=== PATIENT | male | born 1965 | race Caucasian/White ===

== ENCOUNTER 2016-12-10 16:22 | Outpatient (CLI) | payer BC, OTHER ==
[2016-12-10 16:44] VITALS: RESP 16; TEMP 98.3
[2016-12-10] MEDS ORDERED: Sodium Chloride 0.9% 1,000 ML ONE (17:09)
== END 2016-12-10 18:12 | disposition home or self-care (01) ==
LOC: IV THERAPY 16:22
PROVIDERS: ATTEND Emergency Medicine
DX: E86.0 Dehydration (principal)
CPT/HCPCS: 96360; 96361; 99211; J7030

== ENCOUNTER 2017-02-01 10:49 | Emergency (ER) | payer BC, OTHER ==
[2017-02-01] MEDS ORDERED: Sodium Chloride 0.9% 1,000 ML PRIMARY IV ONE ×2 (11:36→14:10)
[2017-02-01] MEDS ORDERED: NORMAL SALINE 10 ML SYRINGE FLUSH IVP PRN (11:36)
[2017-02-01 12:08] LABS: VENOUS PH 7.26 (7.32-7.42)
[2017-02-01 12:16] LABS: BASOPHILS # (AUTO) 0.01 10*3/UL; BASOPHILS % (AUTO) 0.2 % (0-1); EOSINOPHILS # (AUTO) 0 10*3/UL; EOSINOPHILS % (AUTO) 0 % (0-8); HEMATOCRIT 50.4 % (42.0-52.0); HEMOGLOBIN 16.6 g/dL (14.0-18.0); LYMPHOCYTES # (AUTO) 0.43 10*3/uL; MEAN CORPUSCULAR HEMOGLOBIN 27.2 PG (27-31); MEAN CORPUSCULAR HGB CONC 32.9 g/dL (33-37); MEAN CORPUSCULAR VOLUME 82.6 FL (80-90); MONOCYTES # (AUTO) 0.49 10*3/UL (0.3-0.8); MONOCYTES % (AUTO) 8.7 % (5-15); NEUTROPHILS # (AUTO) 4.71 10*3/UL; NEUTROPHILS % (AUTO) 83.3 % (50-80)
[2017-02-01 12:23] LABS: PLATELET MORPHOLOGY COMMENT SEE COMMENTS (NORM); RBC MORPHOLOGY COMMENT NORMAL MORPHOLOGY (NORM); WBC MORPHOLOGY COMMENT NORMAL MORPHOLOGY (NORM)
[2017-02-01 12:25] LABS: BUN/CREATININE RATIO 12.96 (6-20); MAGNESIUM 2.3 mg/dL (1.6-2.4); SERUM ALBUMIN 4.2 g/dL (3.5-4.8)
[2017-02-01 12:36] LABS: CALCIUM 9.9 mg/dL (8.7-10.7)
[2017-02-01 12:43] LABS: C-REACTIVE PROTEIN 16.6 mg/dL (0.0-0.9)
[2017-02-01] MEDS ORDERED: Ertapenem Inj 1 GM in Sodium Chloride 0.9% 100 ML IV ONE (12:51)
--- NOTE | 2017-02-01 12:59 | DI ---
CT HEAD SCAN WITHOUT IV CONTRAST, 02/01/2017 11:36 AM : Clinical History: Confusion. Renal cell carcinoma. Previous Exam: 04/05/2016. Scans are obtained from the foramen magnum to the vertex without IV contrast. The 4th, 3rd, and lateral ventricles are of normal size, shape, position, and contour for the patient 's age. There is no evidence of an acute hemorrhagic or bland infarct. There is no evidence of ischem ic change. No mass effect or white matter edema is present to indicate metastatic disease. There is m oderately severe cerebellar and cerebral atrophy and the severity of cerebral atrophy has progressed since the previous study. There are no extracerebral mantles or shift of the midline structures. Bone window evaluation is normal. The paranasal sinuses are normal. READIN. There is no evidence of an acute hemorrhagic or bland infarct or small vessel ischemic disease. 2. No intracerebral or bony metastases are identified. 3. Moderately severe cerebellar and cerebral atrophy. Cerebral atrophy has progressed slightly since the previous exam.
[2017-02-01 13:07] LABS: BILIRUBIN,URINE LARGE (NEG); COLOR,URINE YELLOW; GLUCOSE, URINE (UA) NEGATIVE (NEG); NITRATE,URINE NEGATIVE (NEG); OCCULT BLOOD,URINE Trace-intact (NEG); PROTEIN,URINE 100 mg/dl (NEG)
[2017-02-01 13:11] LABS: CLARITY,URINE SLIGHTLY CLOUDY (CLEAR); URINE SAMPLE TYPE CATH SPECIMEN
[2017-02-01 13:12] LABS: SQUAMOUS EPITHELIAL CELL,UR MANY; URINE CASTS MANY; URINE CRYSTALS MANY; URINE SPECIFIC GRAVITY - MAN 1.028
[2017-02-01] MEDS ORDERED: SODIUM POLYSTYRENE SULFONATE 15 GM/60 ML PO ONE (13:32)
[2017-02-01] MEDS ORDERED: DEXTROSE 50%-WATER SYRINGE 50 ML SYRINGE IVP ONE (13:33)
[2017-02-01] MEDS ORDERED: INSULIN REGULAR, HUMAN 100 UNIT/1 ML - 3 ML IV ONE (13:34)
[2017-02-01] MEDS ORDERED: D5W IV ONE ×2 (13:37)
[2017-02-01] MEDS ORDERED: SODIUM BICARB IV ONE ×4 (13:37→13:50)
[2017-02-01] MEDS ORDERED: SODIUM CHLORIDE 0.9% IV ONE ×2 (13:50)
--- NOTE | 2017-02-01 13:52 | DI ---
PA /LATERAL CHEST X-RAY, 02/01/2017 11:36 AM : Clinical History: Hypoxia. Renal cell carcinoma. Previous Exam: 11/14/2013. There is no acute soft tissue or bony abnormality. Buttress plates have been placed along the lateral aspect of the right third through fifth and seventh ribs. Heart size is normal. There is blunting of the left costophrenic angle with elevation of the left diaphragm. There is a stellate density in the right upper lobe. This can represent postsurgical scarring if the patient has had prior surgery in t his area. If there is no history of lung resection, then this may represent a tumor nidus. There is s ome right lower lobe atelectasis. Mediastinal structures are normal. Readin. There is a roughly 25 mm stellate lesion in the right apex that either represents postsurgical sc arring or it may represent a mass. 2. Right lower lobe atelectasis. There is chronic blunting of the left costophrenic angle.
[2017-02-01] MEDS ORDERED: SODIUM BICARBONATE 8.4% - 50 ML ADULT SYRINGE IVP ONE (13:56)
--- NOTE | 2017-02-01 14:00 | PDOC ---
General Adult HPI - General Chief Complaint: General Medical Stated Complaint: FALL, WEAKNESS Date Seen by Provider: 02/01/17 Time Seen by Provider: 11:10 Source: POSITIVE: Patient, Other () Exam Limitations: POSITIVE: No limitations Nurse's Notes Reviewed & Considered: Yes EMS Report Reviewed & Considered: Verbal - History of Present Illness Initial Comment: The patient is a 51-year-old male who is brought to the emergency room by ambulance. Patient and report that for the past several days he has become progressively weak. He has fallen 3 times in the past week, according to his . He most recently fell at his residence this morning and this is when the called the ambulance. reports that the patient was confused following his fall. On arrival of the paramedics he was noted to have cyanotic nailbeds and his oxygen saturation on 2 L of oxygen per minute, which he patient is on continuously, was 78%. He was placed on nonrebreather mask and his saturations came up to 96% and his mental status cleared. 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 His oncologist in [place] is Dr. Dash and his radiation oncologist is Dr. Santiago. Patient is presently taking chemotherapy orally with Afinitor and Lenvima. He was taking radiation treatments which he states was terminated a few months ago. Patient also has a recurring anal fissure and he was scheduled to see Dr. Figueroa, surgeon, for this problem later on today. He furthermore had a tooth extracted, right lower wisdom tooth, and the patient has had pain to the mandible on the right since. Review of old records shows that he may possibly have an osteonecrosis of the jaw. Patient was started on penicillin orally by his dentist or oral surgeon for a possible infection in the jaw. He continues to have pain in the right mandible. Patient states that his appetite is been poor and states he is not been eating or drinking normally. He's had diarrhea for the past several days. He denies any head, chest or abdominal pain. He does complain of pain to the right mandible and to the para anal area where he has an anal fissure. Have you received a tetanus shot in the past 10 years?: No Body Location Affected: REPORTS: Other (Generalized weakness, left mandible pain and para anal pain as above) Timing: REPORTS: Gradual, Getting Worse Duration: <1 week (For 3-4 days) Severity: Moderate Quality: REPORTS: "Pain" (Right mandible and perianal area.) Context: REPORTS: Fall (Frequent episodes of falls due to weakness) Modifying Factors: improves with: Vomiting (Times one) Similar Symptoms Previously: No Recent Care Received: REPORTS: Recently Seen, Treated by MD (Seen by for head, oncologist, 01/27/2017) - Patient Home Medications Home Medications: Home Medications Multivitamin [Multivitamins] 1 each PO DAILY 12/20/12 Acyclovir [Zovirax] 1 applic TP 5XD #1 tube 10/09/14 Indomethacin 50 mg PO TID #30 cap 10/06/15 Hydrochlorothiazide 1 tab PO DAILY tab 03/30/16 Pantoprazole Sodium 1 tab PO DAILY tab 03/30/16 Oxycodone HCl/Acetaminophen [Percocet 5-325 Mg Tablet] 1 - 2 tab PO Q4-6H #90 tab 05/28/16 Valacyclovir HCl [Valtrex] 1 tab PO TID #21 tab 08/27/16 Allopurinol 100 mg PO QD #90 tab 09/10/16 Gabapentin 1 cap PO TID #90 cap 11/30/16 Everolimus [Afinitor] 5 mg PO DAILY 12/10/16 Lemvina 14 mg PO DAILY 12/10/16 Penicillin V Potassium [Pen-Vee K] 500 mg PO TID 12/10/16 - Patient Allergies Allergies/Adverse Reactions: Allergies Allergy/AdvReac Type Severity Reaction Status Date / Time MELON Allergy ITCHING Uncoded 02/01/17 11:57 Past Medical History - heen HEENT History: Tinnitis Cardiovascular History: Hypertension, Hyperlipidemia Respiratory History: Home Oxygen Use, Other (please comment) Additional Respiratory History: O2@ 2l/min per [place] Gastrointestinal History: GERD Genitourinary History: Other (please comment) Additional Genitourinary History: kidney removed (2013). renal cell carcinoma with mets to lung/lymph nodes Endocrine History: Type 2 Diabetes (diet) Musculoskeletal History: Gout Prosthesis or Implant: Yes (4 PLATES R RIBS, R SHOULDER) Additional Musculoskeletal History: GOUT IN BIG TOE LEFT/NEUROPATHY BILAT FEET Neurological History: Denies History Blood Disorders: Denies History Psychiatric History: Denies History History of Sexually Transmitted Diseases: No Cancer History: Other (please comment) In Past Year Been Physically Harmed or Verbally Threatened: No History of MDRO: No History of Other Communicable Diseases: Yes (HERPES ) Tobacco Use: Never Smoker Alcohol Use: None Substance Use Type: None Previous Surgical History: Yes Type / Date of Surgery: TONSILLECTOMY/ Rt HAND SX (1990)/ EGD/ R SHOULDER RCR/ NEPHRECTOMY/ADRENAL GLAND REMOVED (2013)/ 4 R RIBS REPLACED WITH TITANIUM (2013) , Rectal (03/31/2016) Anesthesia Reactions: No Malignant Hyperthermia: No Significant Family History: No pertinent family hx Past Medical History Reviewed: Reviewed - No Changes ROS - Limitations ROS Limitations: No Limitations Constitution: REPORTS: Weakness Cardiovascular: REPORTS: Denies Cardiac Symptoms Respiratory: REPORTS: Shortness Of Breath Neurological: REPORTS: Denies Neuro Symptoms Gastrointestinal: REPORTS: Vomitting, Diarrhea Endocrine: REPORTS: Denies Symptoms Musculoskeletal: REPORTS: Denies MS Symptoms Genitourinary: REPORTS: Denies Symptoms Eyes: REPORTS: Denies Symptoms ENT: REPORTS: Denies Symptoms Skin: REPORTS: Other (Anal fissure) Lympathic: REPORTS: Denies Lympathic Symptoms Immunologic: POSITIVE: Denies Symptoms Psychiatric: POSITIVE: Denies Psych Symptoms General Adult Exam - General Appearance General Appearance: POSITIVE: Alert, Cooperative, No Acute Distress, No Evidence of Trauma, Other (Weak, appears chronically ill; nailbeds cyanotic) - HEENT HEENT: POSITIVE: Head Inspection Nml, Eyes Inspection Nml, Ears Inspection Nml, Nose Inspection Nml, Pharynx Inspect. Nml, PERRL, EOMI. NEGATIVE: Oral/Dental Inspect. Nml (Pain on palpation right lower molars and mandible) - Pupils Pupil Size: 4 mm: Bilateral - Neck Neck: POSITIVE: Normal Inspection, Thyroid Normal - Respiratory Respiratory: NEGATIVE: Breath Sounds Normal (Breath sounds diminished on left) - Cardiovascular Cardiovascular: POSITIVE: Regular Rate & Rhythm, No Murmur, No Gallop, PMI Normal Peripheral Pulses: Radial (R): 2+, Radial (L): 2+ - Abdomen Abdomen: Soft: (All Quadrants), Normal Bowel Sounds: (All Quadrants), Denies Tenderness: (All Quadrants), No Splenomegaly: (All Quadrants), No Hepatomegaly: (All Quadrants), No Guarding: (All Quadrants), No Rebound: (All Quadrants), No Palpable Pulse: (All Quadrants), No Palpabale Mass: (All Quadrants), No Distention: (All Quadrants), No Rigidity: (All Quadrants) - Rectal Rectal: POSITIVE: Other (Large anal fissure at approximately the 6 o'clock position) - Back Back: POSITIVE: Normal Inspection - Skin Skin: POSITIVE: Other (Anal fissure at 6 o'clock position). 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 Chest x-ray shows fixation devices present in the right thorax. Radiologist reads scarring right upper lung and scarring or atelectasis left lower lung) Lab Results Reviewed: Yes Lab Results:: Laboratory Results 02/01/17 02/01/17 02/01/17 Range/Units 10:30 11:56 13:04 WBC 5.65 (4.8-10.8) 10^3/uL RBC 6.10 (4.70-6.10) 10^6/uL Hgb 16.6 (14.0-18.0) g/dL Hct 50.4 (42.0-52.0) % MCV 82.6 (80-90) FL MCH 27.2 (27-31) PG MCHC 32.9 L (33-37) g/dL RDW Std Deviation 61.2 H (39-50) fL RDW Coeff of Mukund 20.9 H (11.5-14.5) % Plt Count 125 L (140-350) 10*3/uL Immature Gran % (Auto) 0.2 (0-5) % Neut % (Auto) 83.3 H (50-80) % Lymph % (Auto) 7.6 L (10-50) % [place] % (Auto) 8.7 (5-15) % Eos % (Auto) 0 (0-8) % Baso % (Auto) 0.2 (0-1) % Immature Gran # (Auto) 0.01 10*3/UL Neut # (Auto) 4.71 10*3/UL Lymph # (Auto) 0.43 10*3/uL [place] # (Auto) 0.49 (0.3-0.8) 10*3/UL Eos # (Auto) 0 10*3/UL Baso # (Auto) 0.01 10*3/UL WBC Morphology Comment Normal morphology (NORM) Plt Morphology Comment See comments (NORM) RBC Morph Comment Normal morphology (NORM) VBG pH 7.26 L (7.32-7.42) VBG pCO2 43 L (45-55) mmHg VBG HCO3 19 L (22-26) mmol/L VBG Base Excess -8 L (-2-2) MMOL/L Sodium 135 (135-145) meq/L Potassium 5.4 H (3.8-5.2) meq/L Chloride 97 L (98-112) meq/L Carbon Dioxide 19 L (23-33) meq/L Anion Gap 19 (5-20) BUN 35 H (7-22) mg/dL Creatinine 2.7 H (0.70-1.50) mg/dL Estimated GFR 25 (>60 ml/min/1.73m(2)) BUN/Creatinine Ratio 12.96 (6-20) Glucose 123 H (78-110) mg/dL Calculated Osmolality 288.0 (267-292) mOsm/kg Lactic Acid 3.2 H (0.70-2.10) MMOL/L Calcium 9.9 (8.7-10.7) mg/dL Magnesium 2.3 (1.6-2.4) mg/dL Total Bilirubin 0.9 (0.3-1.2) mg/dL AST 50 (21-57) IU/L ALT 27 (21-72) IU/L Alkaline Phosphatase 138 H (38-126) IU/L C-Reactive Protein 16.6 H (0.0-0.9) mg/dL Total Protein 8.5 H (6.1-8.0) g/dL Albumin 4.2 (3.5-4.8) g/dL Globulin 4.3 H (2.50-4.10) g/dL Albumin/Globulin Ratio 0.90 L (1.3-2.0) mg/g Ur Collection Type Cath specimen Urine Color Yellow Urine Clarity Slightly cloudy (CLEAR) Urine pH 5.0 (5.0-8.5) Ur Specific [place] >=1.030 (1.005-1.030) U Specif Grav (Refrac) 1.028 Urine Protein 100 (NEG) mg/dl Urine Glucose (UA) Negative (NEG) mg/dL Urine Ketones 15 (NEG) Urine Occult Blood Trace-intact H (NEG) Urine Nitrate Negative (NEG) Urine Bilirubin Large (NEG) Urine Urobilinogen 1.0 (0.2) EU/dL Ur Leukocyte Esterase Negative (NEG) Urine RBC 2-5 (NONE) /hpf Urine WBC None (NONE) Ur Squamous Epith Cells Many (NONE) Ur Renal Epithelial Cell None (NONE) Urine Crystals Many Urine Bacteria None (NONE) Urine Casts Many (NONE) Urine Mucus None (NONE) Urine Trichomonas None (NONE) Urine Yeast None (NONE) Ur Culture Indicated? Culture not set - Patient's Progress Pain Medication Addressed: POSITIVE: Not Applicable School/Work Release Addressed: POSITIVE: Not Applicable Re-Examine Time: 12:35 Re-Examine Comment: Concern for possible sepsis, especially due to metabolic acidosis on venous blood gas with a pH of 7.26 and a bicarbonate of 17.3. Lactic acid also elevated. Blood cultures drawn and gram of Ancef ordered. Re-Examine Time:: 13:35 Re-Examine Comment: Case discussed with hospitalist, Dr. Alicea. Dr. Alicea recommends transfer of patient to [facility] [place] contacted and case discussed with Dr. Frederick, braiding machine operator and Dr. Gomez, hospitalist, who accepted the patient in transfer. Patient's hyperkalemia treated with a gram of bicarbonate IV, 30 mL of Kayexalate orally and an amp of D50 followed by 10 units of regular insulin IV. Status: POSITIVE: Improved, Re-Examined Antibiotics Given: Yes (Invanz, 1 g IV) - Consult Consult (If Yes, Name of Consulting MD & Time Called): Yes (Drs. Alicea, Otoinel, and Jason as above) Counseled: POSITIVE: Patient, Family, RE: Lab Results, RE: Radiology Results, RE : DX, RE: Need for F/U Patient Care Time - Estimated PCT Patient Care Time (In Minutes): 70 Vital Signs - Recent Vital Signs Vital Signs: Vital Signs (Last 8 hours) Temp Pulse Resp BP Pulse Ox 02/01/17 11:32 95.9 F L 74 22 103/78 99 - VS Reviewed Vital Signs Reviewed: Yes Critical Care Note - Critical Care Note Total Time (mins): 70 Critical Care: Life Threatening Scenario, Renal Failure Risk, Interpretation of Labs - Management Adjusted Based on Results, Interpretation Imaging Studies - Management Adjusted Based on Results History Source: Patient, Family, EMS notes reviewed, Old records Discussion with Family: Discussion with Research Methodologist: Dr. Alicea, hospitalist at [place]. Dr. Frederick braiding machine operator at [facility]. Dr. Gomez, hospitalist at [facility]. Discharge Clinical Impression: Renal failure, Sepsis, Hyperkalemia, Renal cell carcinoma, Anal fissure, Infection of tooth Discharge Disposition: Transferred to Short Term Facility Condition: Fair Date Decision to Transfer to Another Facility: 02/01/17 Time Decision to Transfer to Another Facility: 13:30
[2017-02-01 14:51] VITALS: RESP 16; TEMP 96.5
[2017-02-01] MEDS ORDERED: Sodium Chloride 0.9% 1,000 ML ONE (18:18)
== END 2017-02-01 14:44 | disposition short-term general hospital (02) ==
LOC: ER 10:49
DX: N17.9 Acute kidney failure, unspecified (principal); A41.9 Sepsis, unspecified organism; E87.5 Hyperkalemia; K60.2 Anal fissure, unspecified; K04.7 Periapical abscess without sinus; R19.7 Diarrhea, unspecified; C64.1 Malignant neoplasm of right kidney, except renal pelvis; R41.0 Disorientation, unspecified
CPT/HCPCS: 36415 ×2; 70450; 71020; 80053; 81001; 81003; 82803; 83605; 83735; 85025; 86140; 96361; 96365; 96375; 99284 ×2; J1815; J1335; J7030; J7050

== ENCOUNTER 2017-02-14 02:03 | Emergency (ER) | payer BC, OTHER ==
[2017-02-14 02:15] VITALS: RESP 20
[2017-02-14] MEDS ORDERED: LORazepam 2 MG/1 ML VIAL ONE (02:22)
[2017-02-14] MEDS ORDERED: ONDANSETRON 4 MG/2 ML VIAL IVP ONE (02:30)
[2017-02-14] MEDS ORDERED: MORPHINE SULFATE 4 MG/1 ML IVP ONE (02:30)
[2017-02-14] MEDS ORDERED: LORazepam 2 MG/1 ML VIAL IVP ONE ×2 (02:30→05:56)
[2017-02-14] MEDS ORDERED: Sodium Chloride 0.9% 1,000 ML PRIMARY IV ONE (02:30)
[2017-02-14 02:37] LABS: BASOPHILS # (AUTO) 0.01 10*3/UL; BASOPHILS % (AUTO) 0.2 % (0-1); EOSINOPHILS # (AUTO) 0.03 10*3/UL; EOSINOPHILS % (AUTO) 0.7 % (0-8); HEMOGLOBIN 9.5 g/dL (14.0-18.0)
--- NOTE | 2017-02-14 02:37 | PDOC ---
Dyspnea HPI - General Chief Complaint: Respiratory Complaint Stated Complaint: SOB Date Seen by Provider: 02/14/17 Time Seen by Provider: 02:32 Source: POSITIVE: Patient, Spouse, Old records Exam Limitations: POSITIVE: No limitations Treatment Prior to Arrival: REPORTS: Oxygen Nurse's Notes Reviewed & Considered: Yes - History of Present Illness Initial Comments: Patient comes in today with a chief complaint of increasing shortness of breath with chest pain. Patient with a complex medical history which includes renal cell carcinoma with metastasis, radiation treatment, chemotherapy, and recent hospitalization. Presently running low-grade fevers and receiving antibiotics. He now has right sided chest pain with shortness of breath. He feels as though his breath is being cut off and he is unable to catch his breath. During his hospitalization last week a thoracentesis was done and pulled approximately 2 L of fluid off his chest. States that his chest pain and shortness of breath has continued unchanged and is now getting worse. He denies any headache, nausea vomiting or diarrhea, no myalgias. Body Location Affected: REPORTS: Chest Timing: REPORTS: Constant, Changing Over Time, Getting Worse Duration: >1 week Severity: Severe Quality: REPORTS: Fullness, "Pain", Sharpness, Stabbing, Throbbing, Pressure Exacerbated By: REPORTS: Exertion Associated Symptoms: REPORTS: Fever, Chest Discomfort, Right Chest, Painful Breathing, Ankle Swelling Similar Symptoms Previously: Yes Recently seen/treated/hospitalized: Yes Any Prior Injuries Related to Current Complaint?: No - Patient Home Medications Home Medications: Home Medications Acyclovir [Zovirax] 1 applic TP 5XD #1 tube 10/09/14 Pantoprazole Sodium 1 tab PO DAILY tab 03/30/16 Everolimus [Afinitor] 5 mg PO DAILY 12/10/16 Penicillin V Potassium [Pen-Vee K] 500 mg PO TID 12/10/16 Chlorhexidine [Chlorhexidine Flavor] 1 ml PO TID 02/01/17 Diphenoxylate HCl/Atrop Sulf [Lomotil Tablet] 1 tab PO QID PRN 02/01/17 Gabapentin 900 mg PO TID 02/01/17 HYDROmorphone Tab [Dilaudid Tab] 1 - 2 tab PO Q4H PRN PRN 02/01/17 Lenvatinib Mesylate [Lenvima] 14 mg PO DAILY 02/01/17 - Patient Allergies Allergies/Adverse Reactions: Allergies Allergy/AdvReac Type Severity Reaction Status Date / Time MELON Allergy Unknown ITCHING Uncoded 02/13/17 14:02 Past Medical History - heen HEENT History: Tinnitis Cardiovascular History: Hypertension, Hyperlipidemia Respiratory History: Home Oxygen Use, Other (please comment) Additional Respiratory History: O2@ 2l/min per [place] Gastrointestinal History: GERD Genitourinary History: Other (please comment) Additional Genitourinary History: kidney removed (2013). renal cell carcinoma with mets to lung/lymph nodes Endocrine History: Type 2 Diabetes (diet) Musculoskeletal History: Gout Prosthesis or Implant: Yes (4 PLATES R RIBS, R SHOULDER) Additional Musculoskeletal History: GOUT IN BIG TOE LEFT/NEUROPATHY BILAT FEET Neurological History: Denies History Blood Disorders: Denies History Psychiatric History: Denies History History of Sexually Transmitted Diseases: No Male Reproductive History: Denies History Cancer History: Other (please comment) In Past Year Been Physically Harmed or Verbally Threatened: No History of MDRO: Yes History of Other Communicable Diseases: Yes (HERPES ) Tobacco Use: Never Smoker Alcohol Use: None Substance Use Type: None Previous Surgical History: Yes Type / Date of Surgery: TONSILLECTOMY/ Rt HAND SX (1990)/ EGD/ R SHOULDER RCR/ NEPHRECTOMY/ADRENAL GLAND REMOVED (2013)/ 4 R RIBS REPLACED WITH TITANIUM (2013) , Rectal (03/31/2016) Anesthesia Reactions: No Malignant Hyperthermia: No Significant Family History: No pertinent family hx ROS - Limitations ROS Limitations: No Limitations Constitution: REPORTS: Fever, Weakness Cardiovascular: REPORTS: Chest Pain Respiratory: REPORTS: Hurts To Breathe, Shortness Of Breath Neurological: REPORTS: Denies Neuro Symptoms Gastrointestinal: REPORTS: Denies GI Symptoms Endocrine: REPORTS: Fatigue Musculoskeletal: REPORTS: Denies MS Symptoms Genitourinary: REPORTS: Denies Symptoms Eyes: REPORTS: Denies Symptoms ENT: REPORTS: Denies Symptoms Skin: REPORTS: Denies Skin Symptoms Lympathic: REPORTS: Denies Lympathic Symptoms Immunologic: POSITIVE: Denies Symptoms Psychiatric: POSITIVE: Denies Psych Symptoms Dyspnea Physical Exam - General Appearance General Appearance: REPORTS: Alert, Cooperative, No Evidence of Trauma, Moderate Distress - HEENT HEENT: POSITIVE: Head Inspection Nml, Eyes Inspection Nml, Ears Inspection Nml, Nose Inspection Nml, PERRL, EOMI - Neck Neck: REPORTS: Normal Inspection - Respiratory Respiratory: REPORTS: Respiratory Distress, Decreased Air Movement (Decreased breath sounds on the left) - Cardiovascular Cardiovascular: REPORTS: Regular Rate and Rhythm, Heart Sounds Normal, No Murmur , No Gallop, No Friction Rub, No JVD - Abdomen Abdomen: Soft: (All Quadrants), Normal Bowel Sounds: (All Quadrants), Denies Tenderness: (All Quadrants) - Skin Skin: REPORTS: Intact, Normal For Race, Warm, Dry, No Rash - Extremities Extremity: Non-Tender: (All Extremities), Normal ROM: (All Extremities), Pelvis Stable: (All Extremities), Edema / Swelling: (All Extremities) - Neurological / Psychological Neurological: POSITIVE: Affect Apporpriate, Oriented X3, Motor Normal, Sensation Normal, Weakness Dyspnea Progress - Results Reviewed by me Xrays/CTs/US Reviewed by me: Yes Discussed with Radiologist: Yes Lab Results Reviewed: Yes Lab Results:: Laboratory Results 02/14/17 02/14/17 Range/Units 02:30 03:07 WBC 4.04 L (4.8-10.8) 10^3/uL RBC 3.20 L (4.70-6.10) 10^6/uL Hgb 9.5 L (14.0-18.0) g/dL Hct 28.8 L (42.0-52.0) % MCV 90.0 (80-90) FL MCH 29.7 (27-31) PG MCHC 33.0 (33-37) g/dL RDW Std Deviation 68.8 H (39-50) fL RDW Coeff of Mukund 22.6 H (11.5-14.5) % Plt Count 163 (140-350) 10*3/uL MPV 9.6 (7.4-12.2) FL Immature Gran % (Auto) 0.7 (0-5) % Neut % (Auto) 80.4 H (50-80) % Lymph % (Auto) 6.9 L (10-50) % Bledsoe % (Auto) 11.1 (5-15) % Eos % (Auto) 0.7 (0-8) % Baso % (Auto) 0.2 (0-1) % Immature Gran # (Auto) 0.03 10*3/UL Neut # (Auto) 3.24 10*3/UL Lymph # (Auto) 0.28 10*3/uL Bledsoe # (Auto) 0.45 (0.3-0.8) 10*3/UL Eos # (Auto) 0.03 10*3/UL Baso # (Auto) 0.01 10*3/UL WBC Morphology Comment Normal morphology (NORM) Plt Morphology Comment Normal morphology (NORM) RBC Morph Comment See comments (NORM) VBG pH 7.33 (7.32-7.42) VBG pCO2 38 L (45-55) mmHg VBG HCO3 20 L (22-26) mmol/L VBG Base Excess -6 L (-2-2) MMOL/L Sodium 136 (135-145) meq/L Potassium 3.7 L (3.8-5.2) meq/L Chloride 105 (98-112) meq/L Carbon Dioxide 21 L (23-33) meq/L Anion Gap 10 (5-20) BUN 9 (7-22) mg/dL Creatinine 1.0 (0.70-1.50) mg/dL Estimated GFR > 60 (>60 ml/min/1.73m(2)) BUN/Creatinine Ratio 9.00 (6-20) Glucose 142 H (78-110) mg/dL Calculated Osmolality 282.0 (267-292) mOsm/kg Calcium 7.1 L (8.7-10.7) mg/dL Magnesium 1.5 L (1.6-2.4) mg/dL Total Bilirubin 0.4 (0.3-1.2) mg/dL AST 16 L (21-57) IU/L ALT 19 L (21-72) IU/L Alkaline Phosphatase 61 (38-126) IU/L Troponin I < 0.012 (< 0.040) ng/mL NT-Pro-B Natriuret Pep 2560 H (0-125) PG/ML Total Protein 5.1 L (6.1-8.0) g/dL Albumin 2.5 L (3.5-4.8) g/dL Globulin 2.6 (2.50-4.10) g/dL Albumin/Globulin Ratio 0.90 L (1.3-2.0) mg/g TSH 71.6 H (0.2700-4.2000) uIU/mL Free T4 0.57 L (0.93-1.71) ng/dL EKG Interpretation:: POSITIVE: Normal Sinus Rhythm - Patient's Progress Pain Medication Addressed: POSITIVE: Yes Re-Examine Time: 05:06 Status: POSITIVE: Improved MDM / ED Course: Patient was examined, an IV started, blood drawn and sent to the lab for studies , radiographic and EKG studies were obtained. EKG showed a sinus rhythm per my interpretation. Chest x-ray shows a left lung cher out. Findings: CT scan shows large bilateral pleural effusion and demonstrates a large pericardial effusion. CBC shows anemia with hemoglobin of 9.5 WBCs are low at 4. TSH is very high at 75. Creatinine is normal at 1. BNP is greater than 2500. Assessment: #1 Hypothyroidism versus myxedema, #2 large pericardial effusion, # 3 large bilateral pleural effusions, #4 low albumin, #5 fluid overload possibly related to #1 versus low oncotic pressure from #4. Plan: Transfer to [facility] for higher level of care. 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 ER course: Patient received morphine and Ativan which resulted in significant improvement of his respiratory distress. 40 mg of Lasix was provided IV. Oxygenation improved, initially patient was on 6 L nasal cannula and this was decreased to 2 L maintaining oxygen saturation in the mid 90s. EMS has been contacted and is transporting the patient with CPAP. Air Movement: POSITIVE: Poor Quality Measure Initiative: CP/AMI: POSITIVE: EKG Quality Measure Initiative: CAP: POSITIVE: SaO2, CXR or CT - Consult Consult (If Yes, Name of Consulting MD & Time Called): Yes (Dr. Veloz, [id number]) Consulting MD will see pt:: POSITIVE: Recommended Transfer Counseled: POSITIVE: Patient, Family, RE: Lab Results, RE: Radiology Results, RE : DX Patient Care Time - Estimated PCT Patient Care Time (In Minutes): 60 Vital Signs - Recent Vital Signs Vital Signs: Vital Signs (Last 8 hours) Temp Pulse Resp BP Pulse Ox 02/14/17 02:05 97.3 F 101 H 20 124/84 96 - VS Reviewed Vital Signs Reviewed: Yes Discharge Clinical Impression: Pericardial effusion, Bilateral pleural effusion, Hypothyroidism Discharge Disposition: Transferred to Tertiary Care Facility Condition: Stable Patient Instructions Given at Discharge: Pericardial Effusion (ED), Pleural Effusion (ED), Hypothyroidism (ED) Date Decision to Transfer to Another Facility: 02/14/17 Time Decision to Transfer to Another Facility: 04:50
[2017-02-14 02:41] LABS: HEMATOCRIT 28.8 % (42.0-52.0); LYMPHOCYTES # (AUTO) 0.28 10*3/uL; MEAN CORPUSCULAR HEMOGLOBIN 29.7 PG (27-31); MEAN PLATELET VOLUME 9.6 FL (7.4-12.2); MONOCYTES # (AUTO) 0.45 10*3/UL (0.3-0.8); MONOCYTES % (AUTO) 11.1 % (5-15); NEUTROPHILS # (AUTO) 3.24 10*3/UL; NEUTROPHILS % (AUTO) 80.4 % (50-80)
[2017-02-14 02:45] LABS: BLOOD UREA NITROGEN 9 mg/dL (7-22); CALCIUM 7.1 mg/dL (8.7-10.7); EST GLOMERULAR FILTRATION > 60 (>60 ml/min/1.73m(2)); MAGNESIUM 1.5 mg/dL (1.6-2.4); SERUM ALBUMIN 2.5 g/dL (3.5-4.8)
[2017-02-14 02:47] LABS: PLATELET MORPHOLOGY COMMENT NORMAL MORPHOLOGY (NORM); RBC MORPHOLOGY COMMENT SEE COMMENTS (NORM); WBC MORPHOLOGY COMMENT NORMAL MORPHOLOGY (NORM)
--- NOTE | 2017-02-14 03:03 | EKG ---
[address] [place] [address] Measurements Intervals [place] Rate: 104 P: 9 MT: 99 QRS: 31 QRSD: 88 T: 17 QT: 265 QTc: 326 Interpretive Statements SINUS TACHYCARDIA WITH SHORT MT INTERVAL LOW QRS VOLTAGE [QRS DEFLECTION < 0.5/1.0 mV IN LIMB/CHEST LEADS] POSSIBLE ANTERIOR MYOCARDIAL INFARCTION [30 ms Q WAVE IN V3/V4, OR R < 0.2 mV IN V4], PROBABLY OLD Compared to ECG 11/14/2013 09:01:00 Short MT interval now present Low QRS voltage now present Myocardial infarct finding now present Sinus rhythm no longer present Electronically Signed On 02-14-17 12:22:57 MDT by Hiram Perez MD [email or web address]
[2017-02-14 03:05] LABS: FREE T4 (FREE THYROXINE) 0.57 ng/dL (0.93-1.71)
[2017-02-14 03:21] LABS: VENOUS PH 7.33 (7.32-7.42)
[2017-02-14] MEDS ORDERED: FUROSEMIDE 10 MG/1 ML - 4 ML IVP ONE (05:08)
[2017-02-14 05:40] LABS: BILIRUBIN,URINE NEGATIVE (NEG); COLOR,URINE YELLOW; GLUCOSE, URINE (UA) NEGATIVE (NEG); NITRATE,URINE NEGATIVE (NEG); PH,URINE 5.5 (5.0-8.5); PROTEIN,URINE 30 mg/dl (NEG); UROBILINOGEN,URINE 0.2 EU/dL (0.2)
[2017-02-14 05:41] LABS: CLARITY,URINE CLOUDY (CLEAR); OCCULT BLOOD,URINE TRACE (NEG)
[2017-02-14 05:42] LABS: URINE SAMPLE TYPE CATH SPECIMEN
[2017-02-14 05:50] LABS: RENAL EPITHELIAL CELLS,URINE FEW
[2017-02-14 05:51] LABS: BACTERIA,URINE FEW; URINE CRYSTALS MANY
[2017-02-14 05:52] LABS: URINE CASTS MODERATE
--- NOTE | 2017-02-14 07:07 | DI ---
AP CHEST X-RAY, 02/14/2017 2:30 AM : Clinical History: Hypoxia. The patient has known renal cell carcinoma. Previous Exam: 02/01/2017. Metallic plates and then placed over the anterior aspects of the right third through fifth and sevent h ribs. Heart size is normal. There is a left pleural effusion with left lower lobe and lingular segm ent atelectasis. There is also atelectasis of the right lower lobe. The left mediastinum is obscured by the pleural effusion and atelectasis. The right mediastinum is grossly normal. Reading: Interval development of a large left pleural effusion and left lower lobe and lingular segment atelec tasis. There is atelectasis in the right lower lobe.
[2017-02-14 07:50] VITALS: TEMP 97.6
== END 2017-02-14 05:59 ==
LOC: ER 02:03
DX: J90 Pleural effusion, not elsewhere classified (principal); E03.9 Hypothyroidism, unspecified; R06.02 Shortness of breath; E11.9 Type 2 diabetes mellitus without complications
CPT/HCPCS: 36415; 71010; 71250; 80053; 81001; 81003; 82803; 83735; 83880; 84439; 84443; 84484; 85025; 93005; 93010; 96374; 96375; 96376; 99285; J1940; J2060; J2270; J2405; J7030

== ENCOUNTER 2017-02-20 13:25 | Emergency (ER) | payer BC, OTHER ==
[2017-02-20] MEDS ORDERED: Sodium Chloride 0.9% 1,000 ML PRIMARY IV ONE (13:51)
[2017-02-20] MEDS ORDERED: Pantoprazole Inj 40 MG in Normal Saline Flush 10 ML IVP ONE (13:52)
--- NOTE | 2017-02-20 13:53 | EKG ---
[address] [place] [address] Measurements Intervals [place] Rate: 99 P: -9 CA: 107 QRS: 65 QRSD: 84 T: 0 QT: 273 QTc: 329 Interpretive Statements SINUS RHYTHM WITH SHORT CA INTERVAL LOW QRS VOLTAGE Compared to ECG 02/14/2017 03:01:18 Sinus tachycardia no longer present Myocardial infarct finding no longer present Electronically Signed On 02-22-17 08:59:43 MDT by Mike Reynoso [email or web address]
[2017-02-20 13:56] VITALS: RESP 24; TEMP 97.1
[2017-02-20 14:01] LABS: BASOPHILS # (AUTO) 0.01 10*3/UL; BASOPHILS % (AUTO) 0.2 % (0-1); EOSINOPHILS # (AUTO) 0.03 10*3/UL; EOSINOPHILS % (AUTO) 0.7 % (0-8); HEMATOCRIT 31.7 % (42.0-52.0); HEMOGLOBIN 9.7 g/dL (14.0-18.0); LYMPHOCYTES # (AUTO) 0.17 10*3/uL; MEAN CORPUSCULAR HEMOGLOBIN 29.4 PG (27-31); MEAN CORPUSCULAR HGB CONC 30.6 g/dL (33-37); MEAN CORPUSCULAR VOLUME 96.1 FL (80-90); MEAN PLATELET VOLUME 9.7 FL (7.4-12.2); MONOCYTES # (AUTO) 0.76 10*3/UL (0.3-0.8); NEUTROPHILS % (AUTO) 78.1 % (50-80)
[2017-02-20 14:08] LABS: BLOOD UREA NITROGEN 9 mg/dL (7-22); BUN/CREATININE RATIO 11.25 (6-20); CALCIUM 8.1 mg/dL (8.7-10.7); EST GLOMERULAR FILTRATION > 60 (>60 ml/min/1.73m(2)); LIPASE 392 IU/L (23-300); MAGNESIUM 1.9 mg/dL (1.6-2.4); SERUM ALBUMIN 2.6 g/dL (3.5-4.8)
[2017-02-20] MEDS: NORMAL SALINE 10 ML SYRINGE FLUSH IVP PRN ×2 (14:18→15:14)
[2017-02-20 14:20] LABS: CREATINE KINASE MB 1.83 NG/ML (0.00-5.00)
[2017-02-20 14:22] LABS: TROPONIN I < 0.012 ng/mL (< 0.040)
[2017-02-20 14:26] LABS: PLATELET MORPHOLOGY COMMENT NORMAL MORPHOLOGY (NORM); WBC MORPHOLOGY COMMENT NORMAL MORPHOLOGY (NORM)
[2017-02-20 14:27] LABS: RBC MORPHOLOGY COMMENT SEE COMMENTS (NORM)
--- NOTE | 2017-02-20 15:47 | PDOC ---
General Adult HPI - General Chief Complaint: Chest Pain Stated Complaint: CHEST PAIN, SHORT OF BREATH Date Seen by Provider: 02/20/17 Time Seen by Provider: 13:30 Source: POSITIVE: Patient Exam Limitations: POSITIVE: No limitations Nurse's Notes Reviewed & Considered: Yes - History of Present Illness Initial Comment: The patient is a 51-year-old male who presents to the emergency department with left-sided chest and abdominal pain. He has a history of metastatic renal cell carcinoma. Recently he was hospitalized in [place] with a large pleural and pericardial effusion. He was found to be profoundly hypo-thyroid. 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 He presented here to the hospital for his IV Rocephin. He reported to nursing staff that he was having some left- sided chest pain and left upper abdominal pain. He subsequently was transferred here to the emergency room for evaluation. He states this pain is been ongoing since this morning. He states that he burped just before getting to the ER in his pain is improved significantly. He just got out of the hospital in [place] on Tuesday. He denies any fevers. He states that his shortness of breath actually has improved over the last 24 hours. He also previously had marked swelling in his hands and legs which also appears to be improving. He is on diuretics. He did have cardiac workup in [place] during his last hospitalization although he does not know the exact tests that were done. Have you received a tetanus shot in the past 10 years?: Yes - Patient Home Medications Home Medications: Home Medications Acyclovir [Zovirax] 1 applic TP 5XD #1 tube 10/09/14 Pantoprazole Sodium 1 tab PO DAILY tab 03/30/16 Everolimus [Afinitor] 5 mg PO DAILY 12/10/16 Penicillin V Potassium [Pen-Vee K] 500 mg PO TID 12/10/16 Chlorhexidine [Chlorhexidine Flavor] 1 ml PO TID 02/01/17 Diphenoxylate HCl/Atrop Sulf [Lomotil Tablet] 1 tab PO QID PRN 02/01/17 Gabapentin 900 mg PO TID 02/01/17 HYDROmorphone Tab [Dilaudid Tab] 1 - 2 tab PO Q4H PRN PRN 02/01/17 Lenvatinib Mesylate [Lenvima] 14 mg PO DAILY 02/01/17 Pantoprazole Sodium [Protonix] 40 mg PO BID #30 tablet. 02/20/17 - Patient Allergies Allergies/Adverse Reactions: Allergies Allergy/AdvReac Type Severity Reaction Status Date / Time MELON Allergy Unknown ITCHING Uncoded 02/20/17 13:39 Past Medical History - heen HEENT History: Tinnitis Cardiovascular History: Hypertension, Hyperlipidemia Respiratory History: Home Oxygen Use, Other (please comment) Additional Respiratory History: O2@ 3l/min per [place] Gastrointestinal History: GERD Genitourinary History: Other (please comment) Additional Genitourinary History: kidney removed (2013). renal cell carcinoma with mets to lung/lymph nodes Endocrine History: Type 2 Diabetes (diet), Hypothyroidism Musculoskeletal History: Gout Prosthesis or Implant: Yes (4 PLATES R RIBS, R SHOULDER) Additional Musculoskeletal History: GOUT IN BIG TOE LEFT/NEUROPATHY BILAT FEET Neurological History: Denies History Blood Disorders: Denies History Psychiatric History: Denies History History of Sexually Transmitted Diseases: No Male Reproductive History: Denies History Cancer History: Other (please comment) Cancer Treatment / Date(s) of Treatment: current In Past Year Been Physically Harmed or Verbally Threatened: No History of MDRO: Yes History of Other Communicable Diseases: Yes (HERPES ) Tobacco Use: Former Smoker Alcohol Use: None Substance Use Type: None Previous Surgical History: Yes Type / Date of Surgery: TONSILLECTOMY/ Rt HAND SX (1990)/ EGD/ R SHOULDER RCR/ NEPHRECTOMY/ADRENAL GLAND REMOVED (2013)/ 4 R RIBS REPLACED WITH TITANIUM (2013) , Rectal (03/31/2016) Anesthesia Reactions: No Malignant Hyperthermia: No Significant Family History: No pertinent family hx Past Medical History Reviewed: Reviewed - No Changes ROS - Limitations ROS Limitations: No Limitations Constitution: DENIES: Chills, Fever Cardiovascular: REPORTS: Chest Pain, Edema (Mostly in his legs at this point, improved significantly since last week). DENIES: Heart Racing, Heart Palpitations Respiratory: REPORTS: Shortness Of Breath (His shortness of breath actually has improved since yesterday). DENIES: Cough Non Productive, Cough Productive, Hurts To Breathe Neurological: REPORTS: Denies Neuro Symptoms Gastrointestinal: REPORTS: Abdominal Pain, Nausea. DENIES: Vomitting, Black Stools, Bloody Stools Genitourinary: REPORTS: Denies Symptoms Eyes: REPORTS: Denies Symptoms ENT: REPORTS: Denies Symptoms Skin: DENIES: Rash General Adult Exam - General Appearance General Appearance: POSITIVE: Alert, Cooperative, No Acute Distress - HEENT HEENT: POSITIVE: Eyes Inspection Nml, Ears Inspection Nml, Pharynx Inspect. Nml , Other (He does have multiple lesions on his scalp) - Neck Neck: POSITIVE: Normal Inspection - Respiratory Respiratory: POSITIVE: No Respiratory Distress, Other (Decreased breath sounds bilaterally) - Cardiovascular Cardiovascular: POSITIVE: Regular Rate & Rhythm, No Murmur Peripheral Pulses: Dorsalis-pedis (R): 2+, Dorsalis-pedis (L): 2+ - Abdomen Abdomen: Soft: (All Quadrants), Normal Bowel Sounds: (All Quadrants), No Distention: (All Quadrants) Additional Abdominal Details: Some tenderness in the left upper quadrant without guarding or rebound tenderness. - Skin Skin: POSITIVE: Normal Color, No Rash - Extremities Additional Extremities Details: He does have edema in the lower extremities bilaterally - Neurological / Psychological Neurological: POSITIVE: Other (No focal neurologic deficits) General Adult Progress - Results Reviewed by me Xrays/CTs/US Reviewed by me: Yes Discussed with Radiologist: Yes Radiology Findings: Portable chest x-ray reveals large left-sided pleural effusion. CT of his chest PE protocol reveals bilateral pleural effusions left greater than right as well as continued pericardial effusion. There is no evidence of PE. He does have tumor in the right upper lung and other chronic findings. CT scan of the abdomen and pelvis reveals ascites with no other significant acute abnormalities, chronic findings are noted. Lab Results Reviewed: Yes Lab Results:: Laboratory Results 02/20/17 Range/Units 13:40 WBC 4.48 L (4.8-10.8) 10^3/uL RBC 3.30 L (4.70-6.10) 10^6/uL Hgb 9.7 L (14.0-18.0) g/dL Hct 31.7 L (42.0-52.0) % MCV 96.1 H (80-90) FL MCH 29.4 (27-31) PG MCHC 30.6 L (33-37) g/dL RDW Std Deviation 76.6 H (39-50) fL RDW Coeff of Mukund 22.6 H (11.5-14.5) % Plt Count 300 (140-350) 10*3/uL MPV 9.7 (7.4-12.2) FL Immature Gran % (Auto) 0.2 (0-5) % Neut % (Auto) 78.1 (50-80) % Lymph % (Auto) 3.8 L (10-50) % Armstrong % (Auto) 17.0 H (5-15) % Eos % (Auto) 0.7 (0-8) % Baso % (Auto) 0.2 (0-1) % Immature Gran # (Auto) 0.01 10*3/UL Neut # (Auto) 3.50 10*3/UL Lymph # (Auto) 0.17 10*3/uL Armstrong # (Auto) 0.76 (0.3-0.8) 10*3/UL Eos # (Auto) 0.03 10*3/UL Baso # (Auto) 0.01 10*3/UL WBC Morphology Comment Normal morphology (NORM) Plt Morphology Comment Normal morphology (NORM) RBC Morph Comment See comments (NORM) PT 10.9 (9.7-11.4) secs INR 1.06 (0.00-5.90) N/A D-Dimer 5.03 H (0.00-0.59) mg/L Sodium 137 (135-145) meq/L Potassium 3.4 L (3.8-5.2) meq/L Chloride 100 (98-112) meq/L Carbon Dioxide 27 (23-33) meq/L Anion Gap 10 (5-20) BUN 9 (7-22) mg/dL Creatinine 0.8 (0.70-1.50) mg/dL Estimated GFR > 60 (>60 ml/min/1.73m(2)) BUN/Creatinine Ratio 11.25 (6-20) Glucose 148 H (78-110) mg/dL Calculated Osmolality 285.0 (267-292) mOsm/kg Calcium 8.1 L (8.7-10.7) mg/dL Magnesium 1.9 (1.6-2.4) mg/dL Total Bilirubin 0.5 (0.3-1.2) mg/dL AST 14 L (21-57) IU/L ALT 22 (21-72) IU/L Alkaline Phosphatase 50 (38-126) IU/L CK-MB (CK-2) 1.83 (0.00-5.00) NG/ML Troponin I < 0.012 (< 0.040) ng/mL Total Protein 5.4 L (6.1-8.0) g/dL Albumin 2.6 L (3.5-4.8) g/dL Globulin 2.8 (2.50-4.10) g/dL Albumin/Globulin Ratio 0.90 L (1.3-2.0) mg/g Amylase 85 (30-110) U/L Lipase 392 H (23-300) IU/L EKG Interpreted/Reviewed By Me:: Yes EKG Interpretation:: POSITIVE: Normal Sinus Rhythm, Normal Rate, Normal Intervals, Normal QRS, Normal ST/T - Patient's Progress MDM / ED Course: By the time the patient arrived in the emergency department his pain had significantly improved after belching. His initial EKG shows normal sinus rhythm with no obvious acute changes. The patient did receive Protonix. The patient's pain had resolved here in the emergency department. His lab work had revealed an elevated d-dimer as well as mildly elevated amylase. Subsequent CT scan of his chest reveals no evidence of PE, continued pleural effusions and pericardial effusions as well as chronic findings related to previous trauma and metastatic disease. CT scan of his abdomen and pelvis shows ascites with no other acute findings other than his metastatic disease. At this time I think the patient's pain was caused more from a GI source. He reports that he recently stopped taking Protonix. His pain is consistent with a gastritis or ulcer. He was started on Protonix 40 mg twice a day. He is advised return to the emergency room if he develops increased pain, vomiting or dehydration, fever , any worsening or change in symptoms. He has follow-up appointment scheduled with all of his various providers over the next couple of weeks. He will continue outpatient IV Rocephin as previously ordered - Consult Counseled: POSITIVE: Patient, Family, RE: Lab Results, RE: Radiology Results, RE : DX, RE: Need for F/U Patient Care Time - Estimated PCT Patient Care Time (In Minutes): 55 Vital Signs - VS Reviewed Vital Signs Reviewed: Yes Discharge Clinical Impression: Chest pain, Gastritis Discharge Disposition: Discharged to Home Condition: Stable Prescriptions / Orders: Pantoprazole Sodium [Protonix] 40 mg PO BID #30 tablet. Patient Instructions Given at Discharge: Chest Pain (ED), Gastritis (ED) Additional Instructions: The EKG of your heart did not reveal any evidence of heart attack. Your blood test also did not show any evidence of heart attack. The CAT scan of your chest did not reveal any evidence of blood clot. There was still fluid around both lungs, left greater than right and a small amount around the heart. Other chronic findings including tumor in the right upper lung and previous rib fractures etc. were also noted. The CAT scan of your abdomen and pelvis revealed no evidence of bowel obstruction or current infection. There was some fluid in the abdomen as well. At this time I think the pain you're experiencing is most likely secondary to gastritis or ulcer. This could be worsened from recent discontinuation of Protonix. Recommend reinitiation of Protonix 40 mg twice a day. Continue your other medications and treatments as previously prescribed. Return to the emergency room if increased pain, fever, vomiting or dehydration, any worsening or change in symptoms. Keep your various appointments with primary care in specialists over the next couple of weeks. Continue your outpatient antibiotics as previously prescribed. Follow Up With: NONE,NONE [Primary Care Provider] -
== END 2017-02-20 17:55 | disposition home or self-care (01) ==
LOC: ER 13:25
DX: K29.00 Acute gastritis without bleeding (principal); E11.9 Type 2 diabetes mellitus without complications; I10 Essential (primary) hypertension; E78.5 Hyperlipidemia, unspecified; R06.02 Shortness of breath; J90 Pleural effusion, not elsewhere classified
CPT/HCPCS: 71010; 71275; 74177; 80053; 82150; 82553; 83690; 83735; 84484; 85025; 85379; 85610; 93005; 93010; 96374; 99284; J3490; J7030

== ENCOUNTER 2017-02-25 14:14 | Emergency (ER) | payer BC, OTHER ==
[2017-02-25] MEDS ORDERED: Sodium Chloride 0.9% 1,000 ML PRIMARY IV ONE (14:22)
[2017-02-25] MEDS ORDERED: NORMAL SALINE 10 ML SYRINGE FLUSH IVP PRN (14:22)
[2017-02-25 14:48] VITALS: RESP 20; TEMP 100.2
--- NOTE | 2017-02-25 15:11 | PDOC ---
Dyspnea HPI - General Chief Complaint: Dyspnea Stated Complaint: INCREASED SHORTNESS OF BREATH Date Seen by Provider: 02/25/17 Time Seen by Provider: 14:30 Source: POSITIVE: Patient Exam Limitations: POSITIVE: No limitations Treatment Prior to Arrival: REPORTS: None Nurse's Notes Reviewed & Considered: Yes - History of Present Illness Initial Comments: The patient is a 51-year-old male with a history of metastatic renal cell carcinoma who presents to the emergency department with increased shortness of breath. He was here receiving his outpatient infusion of Rocephin for treatment of some type of perirectal abscess/fistula. While he was here he told nursing staff that he is having increased difficulty breathing and feels like he has swelling up more with fluid. He reports continued swelling in both of his legs. He also is complaining of some pain in the left side of his chest and left upper abdomen. He has continued cough as well. He has a fairly complicated medical history. He was receiving chemotherapy for his metastatic renal disease last month. [place] [facility] [place]. During his last admission he was found to be profoundly hypothyroid. He also has had bilateral pleural effusions, left greater than right as well as pericardial effusion. He has been receiving diuretics since being discharged from the hospital as well as thyroid medication. He states that he does not think that his swelling is any better and now over the last 24 hours has developed increased shortness of breath. He was seen here in the emergency room last weekend with complaints of left-sided pain. He had undergone CTA of the chest as well as CT of his abdomen and pelvis at that time. He has multiple metastatic lesions in his chest as well as bilateral effusions and pericardial effusion. He did not have any evidence of PE or dissection at that time. The CT scan of his abdomen and pelvis revealed ascites consistent with anasarca as well as metastatic lesions to the adrenal glands, no other acute findings at that time. The patient reports that he has had some form of cardiac workup during his hospitalization in [place] when he was there last time. In addition he did have the pleural effusion on the left drained once however this reaccumulated very quickly. On arrival here in the emergency room his temperature is 100.2. The patient does report subjective fevers and chills at home. - Patient Home Medications Home Medications: Home Medications Acyclovir [Zovirax] 1 applic TP 5XD #1 tube 10/09/14 Pantoprazole Sodium 1 tab PO DAILY tab 03/30/16 Everolimus [Afinitor] 5 mg PO DAILY 12/10/16 Penicillin V Potassium [Pen-Vee K] 500 mg PO TID 12/10/16 Chlorhexidine [Chlorhexidine Flavor] 1 ml PO TID 02/01/17 Diphenoxylate HCl/Atrop Sulf [Lomotil Tablet] 1 tab PO QID PRN 02/01/17 Gabapentin 900 mg PO TID 02/01/17 HYDROmorphone Tab [Dilaudid Tab] 1 - 2 tab PO Q4H PRN PRN 02/01/17 Lenvatinib Mesylate [Lenvima] 14 mg PO DAILY 02/01/17 Pantoprazole Sodium [Protonix] 40 mg PO BID #30 tablet. 02/20/17 Furosemide [Lasix] 40 mg PO BID 02/25/17 - Patient Allergies Allergies/Adverse Reactions: Allergies Allergy/AdvReac Type Severity Reaction Status Date / Time MELON Allergy Unknown ITCHING Uncoded 02/25/17 14:23 Past Medical History - jackeline GUERRIER History: Tinnitis Cardiovascular History: Hypertension, Hyperlipidemia Respiratory History: Home Oxygen Use, Other (please comment) Additional Respiratory History: O2@ 4l/min per [place] Gastrointestinal History: GERD Genitourinary History: Other (please comment) Additional Genitourinary History: kidney removed (2013). renal cell carcinoma with mets to lung/lymph nodes Endocrine History: Type 2 Diabetes (diet), Hypothyroidism Musculoskeletal History: Gout Prosthesis or Implant: Yes (4 PLATES R RIBS, R SHOULDER) Additional Musculoskeletal History: GOUT IN BIG TOE LEFT/NEUROPATHY BILAT FEET Neurological History: Denies History Blood Disorders: Denies History Psychiatric History: Denies History History of Sexually Transmitted Diseases: No Cancer History: Renal, Other (please comment) Cancer Treatment / Date(s) of Treatment: current In Past Year Been Physically Harmed or Verbally Threatened: No History of MDRO: Yes Type of MDRO: Unknown History of Other Communicable Diseases: No Tobacco Use: Former Smoker Alcohol Use: None Substance Use Type: None Previous Surgical History: Yes Type / Date of Surgery: TONSILLECTOMY/ Rt HAND SX (1990)/ EGD/ R SHOULDER RCR/ NEPHRECTOMY/ADRENAL GLAND REMOVED (2013)/ 4 R RIBS REPLACED WITH TITANIUM (2013) , Rectal (03/31/2016) Anesthesia Reactions: No Malignant Hyperthermia: No Significant Family History: No pertinent family hx Past Medical History Reviewed: Reviewed - No Changes ROS - Limitations ROS Limitations: No Limitations Constitution: REPORTS: Chills, Fever Cardiovascular: REPORTS: Chest Pain (Continued intermittent left-sided chest pains), Edema (Bilateral leg edema) Respiratory: REPORTS: Hurts To Breathe, Shortness Of Breath Neurological: DENIES: Headache, Numbness, Weakness Gastrointestinal: REPORTS: Abdominal Pain (Left-sided abdominal pain). DENIES: Vomitting, Black Stools, Bloody Stools Endocrine: REPORTS: Fatigue Musculoskeletal: REPORTS: Lower Extremity Swelling Genitourinary: REPORTS: Denies Symptoms, Other (Decreased urination today) Eyes: REPORTS: Denies Symptoms ENT: REPORTS: Denies Symptoms Skin: DENIES: Rash Dyspnea Physical Exam - General Appearance General Appearance: REPORTS: Other (The patient is awake and cooperative, he does appear acutely and chronically ill) - HEENT HEENT: POSITIVE: Head Inspection Nml, Eyes Inspection Nml, Ears Inspection Nml, Dry Mucous Membranes - Neck Neck: REPORTS: Normal Inspection. DENIES: JVD Present - Respiratory Respiratory: REPORTS: Other (He has markedly diminished breath sounds bilaterally with some crackles noted in the left lung with him laying on his left side) - Cardiovascular Cardiovascular: REPORTS: Regular Rate and Rhythm, Heart Sounds Normal Peripheral Pulses: Dorsalis-pedis (R): 2+, Dorsalis-pedis (L): 2+ - Abdomen Abdomen: Soft: (All Quadrants), No Guarding: (All Quadrants), No Rebound: (All Quadrants), No Distention: (All Quadrants) - Skin Skin: REPORTS: Intact, No Rash - Extremities Extremity: Normal Inspection: (All Extremities) - Neurological / Psychological Neurological: POSITIVE: Oriented X3, Motor Normal, Sensation Normal, Other (No focal neurologic deficits) Dyspnea Progress - Results Reviewed by me Xrays/CTs/US Reviewed by me: Yes Discussed with Radiologist: Yes Radiology Findings: Portable chest x-ray reveals worsening opacity on the left consistent with worsening effusion when compared to x-ray from 5 days ago. Lab Results Reviewed: Yes Lab Results:: Laboratory Results 02/25/17 02/25/17 Range/Units 13:31 15:07 Lactic Acid 1.5 (0.70-2.10) MMOL/L Magnesium 1.8 (1.6-2.4) mg/dL Troponin I < 0.012 (< 0.040) ng/mL C-Reactive Protein 7.4 H (0.0-0.9) mg/dL NT-Pro-B Natriuret Pep 3880 H (0-125) PG/ML - Patient's Progress MDM / ED Course: The patient was running a low-grade temperature on arrival with a temperature of 100.2. Because of this blood cultures and lactate were drawn with the IV start. The patient had outpatient blood work done already today which consisted of CBC, CMP and TSH. His TSH is 22 compared to in the 70s a couple of weeks ago. His sodium and potassium are little bit low. White count is low at 4. Hemoglobin is 9.3 which is down slightly from 9.7 5 days ago. Chest x- ray reveals basically a complete white out on the left read as worsening opacification on the left side by radiologist. The patient is a fairly complicated patient with metastatic renal cell carcinoma, anasarca, large left pleural effusion which is now causing an increased O2 requirement at 4 L compared to 2 L baseline. I did discuss the patient with Dr. Veloz from our hospitalist service and he recommended that the patient be transferred to a tertiary center. I subsequently spoke with Dr. Mcelroy who is the hospitalist on duty at [facility] He agreed to accept the patient and recommended that he come through the emergency department and stated that he would talk with them. I discussed these findings and recommendations with the patient and his . He was not excited about the idea of being transferred back to [place] however did agree. Initially he refused to go to [place] by ambulance however after further discussion with him and his regarding risks and benefits of ambulance transfer he finally did agree to go to the hospital in [place] by ambulance. - Consult Counseled: POSITIVE: Patient, Family, RE: Lab Results, RE: Radiology Results, RE : DX Patient Care Time - Estimated PCT Patient Care Time (In Minutes): 40 Vital Signs - Recent Vital Signs Vital Signs: Vital Signs (Last 8 hours) Temp Pulse Resp BP Pulse Ox 02/25/17 14:26 100.2 F H 103 H 20 113/78 96 - VS Reviewed Vital Signs Reviewed: Yes Discharge Clinical Impression: Renal cell adenocarcinoma, Anasarca, Pleural effusion, Anemia, Hypothyroidism Discharge Disposition: Transferred to Tertiary Care Facility Condition: Fair Follow Up With: THELMA DING [Primary Care Provider] - Date Decision to Transfer to Another Facility: 02/25/17 Time Decision to Transfer to Another Facility: 16:35
--- NOTE | 2017-02-25 16:26 | DI ---
XR CXR 1VW,02/25/2017 2:22 PM: Clinical History: Hypoxia. Previous Exam: February 20, 2017 Findings: A single frontal radiograph of the chest is obtained, and demonstrates increasing opacification of th e left hemithorax with no visible remaining aeration of the left lung. There is some stable density within the right lung apex. Postsurgical changes are seen of multiple ri bs on the right. Impression: Worsening opacification of the left hemithorax. Stable density within the right lung apex.
== END 2017-02-25 17:30 | disposition short-term general hospital (02) ==
LOC: ER 14:14
DX: J90 Pleural effusion, not elsewhere classified (principal); R60.1 Generalized edema; R50.9 Fever, unspecified; D64.9 Anemia, unspecified; E03.9 Hypothyroidism, unspecified; E11.9 Type 2 diabetes mellitus without complications; R06.02 Shortness of breath; C64.2 Malignant neoplasm of left kidney, except renal pelvis
CPT/HCPCS: 36415; 71010; 83605; 83735; 83880; 84484; 86140; 87040; 99283; J7030

== ENCOUNTER → 2017-03-17 | Outpatient (CLI) | payer BC, OTHER ==
--- NOTE | 2017-03-17 12:32 | DI ---
PA /LATERAL CHEST X-RAY, 03/17/2017 9:10 AM : Clinical History: Chronic osteomyelitis of the mandible. Cutaneous abscess. Previous Exam: 02/25/2017. There are metallic buttress plates over the anterior aspect of the right third through fifth and the seventh ribs. A PICC line is present in the catheter tip is just superior to the junction with the le ft brachiocephalic vein. Heart size is normal. There is a small left pleural effusion with left lower lobe atelectasis. There is a radiodensity in the left mid clavicular line lateral to the aortic knob . There is a density overlying the upper thoracic spine at approximately the same level and this prob ably is a mass measuring approximately 3-4 cm in diameter. There is a density in the right apex that either represents a second mass or loculated pleural effusion or a combination of both and this measu res approximately 3-4 cm in diameter. Mediastinal structures are normal. Readin. There is a right apical density that either represents a mass or a focus of loculated pleural eff usion or a combination of both and this measures 3-4 cm in diameter. There may be a second 3-4 cm mas s in the left midlung field posteriorly. 2. Small left pleural effusion with left lower lobe atelectasis.
--- NOTE | 2017-03-17 13:15 | DI ---
CT SCAN OF THE NECK WITHOUT IV IV CONTRAST, 03/17/2017 9:10 AM : Clinical History: Chronic osteomyelitis of the mandible. Cutaneous abscess. Previous Exam: None at this facility. Scans are obtained from below the sternal notch to the petrous pyramids without IV contrast. Sagittal and coronal images are generated. The cervical vertebral bodies are of normal height and size. There is chronic disc space narrowing at every cervical level. Scans through the mandible show no evidence of periosteal new bone formation. There is no definite lytic lesion identified although there may be thinning of the cortex of the medi al margin of the body of the left mandible. The right third molar is fractured off of the mandible an d the roots are still present in the mandible. There are no soft tissue masses on either side. No lym phadenopathy is identified. The right lobe of the thyroid gland is quite small in the left lobe canno t be identified. Both parotid and submandibular glands are normal. READIN. No soft tissue mass or evidence of a cutaneous fistula is identified in the region of the mandibl e. There is some thinning of the medial surface of the body of the left mandible but the mandible its elf is otherwise normal. The right third molar is missing and the roots of this tooth still may be pr esent in the mandible. 2. There is no lymphadenopathy. The parotid and submandibular glands are normal. The left lobe of th e thyroid gland is not visible and the right lobe appears quite small.
== END ==
LOC: CT 08:58
PROVIDERS: ATTEND Internal Medicine Infectious Disease
DX: M27.2 Inflammatory conditions of jaws (principal); L02.818 Cutaneous abscess of other sites; J90 Pleural effusion, not elsewhere classified
CPT/HCPCS: 70490; 71020